=== PATIENT | male | born 1975 | race Two or more races ===

== ENCOUNTER 2022-07-31 06:03 | Emergency (ER) | payer MEDICAID, OTHER ==
[~2022-07-31] VITALS: Ht 170.2 cm; Wt 91.6 kg
--- NOTE | 2022-07-31 06:25 | NUR ---
BIBS FOR C/O A CUT ON HIS PRIVATE AREA WITH PURULENT DISCHARGES [id number]. PATIENT IS AAOX4, AMBULATORY, ABLE TO MAKE NEEDS KNOWN. ATTACHED TO MONITOR. VITALS CHECKED.
--- NOTE | 2022-07-31 06:30 | NUR ---
SEEN BY MD AT BEDSIDE
[2022-07-31] MEDS ORDERED: MUPIROCIN OINT 2% 22 GM TUBE ONE (06:39)
[2022-07-31] MEDS ORDERED: KETOROLAC TROMETHAMINE INJ 30 MG/ML VIAL ONE (06:39)
--- NOTE | 2022-07-31 06:47 | NUR ---
IV CANNULA INSERTED ON LEFT AC G18. BLOOD DRAWN AND SENT TO LAB
[2022-07-31] MEDS ORDERED: MUPIROCIN OINT 2% 22 GM TUBE TP ONE (07:00)
[2022-07-31] MEDS ORDERED: KETOROLAC TROMETHAMINE INJ 60 MG/2 ML VIAL IM ONE (07:00)
[2022-07-31] MEDS ORDERED: CLOTRIMAZOLE/BETAMETASONE DIPROPIONATE 15 GM TUBE TP ONE (07:00)
[2022-07-31] MEDS ORDERED: IV NS 0.9% 1,000 ML IV ONE (07:00)
[2022-07-31] MEDS ORDERED: CLOTRIMAZOLE/BETAMETASONE DIPROPIONATE 15 GM TUBE TP SCH (07:00)
--- NOTE | 2022-07-31 07:00 | NUR ---
CREAM AT PT BEDSIDE
--- NOTE | 2022-07-31 07:16 | NUR ---
REPORT GIVEN TO ERICK FLOWERS
[2022-07-31 07:48] LABS: BASOPHILS % (AUTO) 0.4 % (0.0-2.0); EOSINOPHILS % (AUTO) 3.2 % (0.0-6.0); HEMATOCRIT 36 % (39-51); HEMOGLOBIN 11.5 g/dL (13.5-17.5); LYMPHOCYTES % (AUTO) 22.6 % (20.0-44.0); MEAN CORPUSCULAR HGB CONC 32 g/dl (31.0-36.0); MEAN CORPUSCULAR VOLUME 81 fL (80-96); MONOCYTES # (AUTO) 0.4 K/uL (0.1-1.30); NEUTROPHILS % (AUTO) 65.8 % (43.0-81.0); PLATELET COUNT (AUTO) 102 K/uL (150-450); RED BLOOD CELL COUNT(AUTO) 4.43 MIL/uL (4.5-6.0); WHITE BLOOD COUNT (AUTO) 4.5 K/uL (4.3-11.0)
[2022-07-31 07:56] LABS: CALCIUM, SERUM 8.4 mg/dL (8.5-10.1); CARBON DIOXIDE 26 mmol/L (21-32); CHLORIDE 97 mmol/L (98-107); CREATININE 0.9 mg/dL (0.6-1.3); POTASSIUM 3.9 mmol/L (3.5-5.1); SODIUM SERUM 134 mmol/L (136-145); UREA NITROGEN, BLOOD 8 mg/dL (7-18)
[2022-07-31 08:55] LABS: BILIRUBIN,URINE NEGATIVE (NEGATIVE); COLOR,URINE YELLOW (YELLOW); LEUKOCYTE ESTERASE ,URINE NEGATIVE (NEGATIVE); NITRITE, URINE NEGATIVE (NEGATIVE); PROTEIN,URINE NEGATIVE (NEGATIVE); UGLUCOSE 3+ mg/dL (NEGATIVE); UROBILINOGEN,URINE 0.2 EU/dL (0.2)
[2022-07-31] MEDS ORDERED: CLOT15CR27 TP (08:55)
[2022-07-31] MEDS ORDERED: MUPI22OI2 TP (08:55)
[2022-07-31 08:57] LABS: GLUCOSE 555 mg/dL (74-106)
[2022-07-31 08:59] LABS: BACTERIA,URINE None seen /HPF (None Seen); SQUAMOUS EPITHELIAL CELL,UR Moderate /HPF (None Seen); WBC,URINE 0-2 /HPF (0-3)
--- NOTE | 2022-07-31 09:09 | NUR ---
Patient discharged to home in stable condition. Written and verbal after care instructions given. Patient verbalizes understanding of instruction.
--- NOTE | 2022-07-31 09:09 | NUR ---
IV removed. Catheter intact and site benign. Pressure and 4x4 applied to site. No bleeding noted.
[2022-07-31 09:10] VITALS: BP 133/69
[2022-07-31 17:22] LABS: EOSINOPHILS % (MANUAL) 2 % (0-4); LYMPHOCYTES % (MANUAL) 28 % (16-48); MONOCYTES % (MANUAL) 7 % (0-11.0); NEUTROPHILS % (MANUAL) 63 (42-76)
== END 2022-07-31 09:10 | disposition home or self-care (01) ==
LOC: ER 06:05
DX: N47.6 Balanoposthitis (principal); K74.60 Unspecified cirrhosis of liver; G40.909 Epilepsy, unspecified, not intractable, without status epilepticus; E11.9 Type 2 diabetes mellitus without complications; Z88.0 Allergy status to penicillin; Z88.1 Allergy status to other antibiotic agents; Z79.899 Other long term (current) drug therapy
CPT/HCPCS: 99283; 96360; 96372; 85025; 80048; 82010; 81001; 36415; 82962; 85007; J1885; J7030